=== PATIENT | female | born 1985 | race African-American/Black ===

== ENCOUNTER → 2016-08-22 | Outpatient (CLI) | payer BC ==
[~2016-08-22] MED LIST: DOXYCYCLINE150 MG PO; LORTAB 10-5001 EACH PO; PRENATAL VITAMI1 TA3 PO; ZANTAC PO; ZITHROMAX PO
--- NOTE | ~2016-08-22 | CR222 ---
[facility] A Service of [facility] RADIOLOGY TEXT RESULTS PATIENT: JUAN MIGUEL CHOPRA LOCATION: [facility] : 83 UNIT #: [id number] AGE: [address]: KAYLAN IVAN SEX: F ORDER DR: [id number] [facility] [address] [place] [place], [place] [address] [id number] O MR#: [id number] Acc #: [id number] NAME: JUAN MIGUEL CHOPRA : 1985 SEX: F STUDY DATE/TIME: 08/22/2016 14:02 UNIT: [facility] ROOM: STUDY DESCRIPTION: CR Scoliosis Standing Attending Physician: Kaylan Ivan Aprn Referring Physician: Kaylan Ivan Aprn Ordering Physician: Kaylan Ivan Aprn Primary Care Physician: Primary Care Physician No MEDICAL IMAGING REPORT This report is preliminary unless electronic signature is present EXAM Scoliosis survey, standing 08/22/2016, [facility] HISTORY Mid back pain many years, worse in the last 2 months. FINDINGS AP standing views of the thoracic and lumbar spine demonstrate an upper thoracic levoscoliosis measuring approximately 8 degrees centered at T5-6. There is a very slight lumbar levoscoliosis measuring 3.2 degrees centered at L2-3. IMPRESSION Moderate upper thoracic levoscoliosis with mild lumbar levoscoliosis. See full report which includes degrees and levels. Dictated by... Randal Lopez M.D. THIS IS AN ELECTRONICALLY VERIFIED REPORT Randal Lopez M.D. at 08/23/2016 8:10 AM CELIOB/hunter TD: 08/22/2016 19:20 JOB #: [id number] MEDICAL IMAGING REPORT Page 1 of 1 COPY
== END | disposition home or self-care (01) ==
LOC: CRAD 13:42
DX: M41.9 Scoliosis, unspecified (principal); M54.5 Low back pain
CPT/HCPCS: 72081